=== PATIENT | male | born 1995 | race American Indian/Alaskan Native ===

== ENCOUNTER 2016-06-19 10:42 | Emergency (ER) | payer MEDICARE, OTHER ==
[2016-06-19 10:51] VITALS: BP 119/77
--- NOTE | 2016-06-19 13:07 | Emergency Department Report ---
- General Chief Complaint: Upper Respiratory Infection Stated Complaint: SORE THROAT/COUGHING/SNEEZING/CONGESTION Time Seen by Provider: 06/19/16 12:38 Source: patient Mode of arrival: Ambulatory Limitations: No Limitations - History of Present Illness Initial Comments: 20-year-old male presents today with cough, nasal congestion, minimal sore throat 2 days. Patient states that his niece has been sick. Denies having any medication for symptomatic relief. Denies fever, chills, nausea, vomiting, chest pain, shortness of breath, abdominal pain. MD Complaint: cough, sore throat, rhinorrhea, nasal congestion Onset/Timin -: days(s) Severity: mild Severity scale (0 -10): 0 Improves With: nothing Worsens With: nothing Context: sick contacts (neice was sick) Associated Symptoms: rhinorrhea, nasal congestion, sore throat, cough. denies: fever, chills, myalgias, headache, chest pain, shortness of breath, abdominal pain, nausea, vomiting, diarrhea, rash, hoarseness, ear pain Treatments Prior to Arrival: none - Related Data Previous Rx's Medication Instructions Recorded Last Taken Type Neomy/Polymyx B/Hc Otic Susp 5 drops OT QID #1 bottle 02/13/14 Unknown Rx [Cortisporin (Otic) Susp] Fluticasone [Flonase] 1 spray NS QDAY #1 bottle 06/19/16 Unknown Rx Ibuprofen [Motrin 600 MG tab] 600 mg PO Q8H PRN #30 tablet 06/19/16 Unknown Rx Promethazine /Codeine 5 ml PO Q6H PRN #100 ml 06/19/16 Unknown Rx [Phenergan/Codeine 6.25-10 mg/5 ml] Allergies Allergy/AdvReac Type Severity Reaction Status Date / Time No Known Allergies Allergy Verified 02/13/14 15:31 ED Review of Systems ROS: Stated complaint: SORE THROAT/COUGHING/SNEEZING/CONGESTION Other details as noted in HPI Constitutional: denies: chills, fever, malaise Eyes: denies: eye pain ENT: throat pain, congestion. denies: ear pain Respiratory: cough. denies: shortness of breath, wheezing Cardiovascular: denies: chest pain, palpitations Endocrine: no symptoms reported Gastrointestinal: denies: abdominal pain, nausea, vomiting Neurological: denies: headache, weakness ED Past Medical Hx - Past Medical History Previous Medical History?: No - Surgical History Past Surgical History?: No - Social History Smoking Status: Never Smoker Substance Use Type: None - Medications Home Medications: Home Medications Medication Instructions Recorded Confirmed Last Taken Type Neomy/Polymyx B/Hc Otic Susp 5 drops OT QID #1 bottle 02/13/14 Unknown Rx [Cortisporin (Otic) Susp] Fluticasone [Flonase] 1 spray NS QDAY #1 bottle 06/19/16 Unknown Rx Ibuprofen [Motrin 600 MG tab] 600 mg PO Q8H PRN #30 tablet 06/19/16 Unknown Rx Promethazine /Codeine 5 ml PO Q6H PRN #100 ml 06/19/16 Unknown Rx [Phenergan/Codeine 6.25-10 mg/5 ml] ED Physical Exam - General Limitations: No Limitations General appearance: alert, in no apparent distress - Head Head exam: Present: atraumatic, normocephalic - Eye Eye exam: Present: normal appearance, PERRL - ENT ENT exam: Present: normal orophraynx, mucous membranes moist, TM's normal bilaterally, normal external ear exam - Expanded ENT Exam Expanded Ear exam: Present: normal external inspection Mouth exam: Present: normal external inspection, tongue normal. Absent: drooling, trismus, muffled voice Throat exam: Positive: normal inspection, tonsillar erythema (minimal). Negative: tonsillomegaly, tonsillar exudate, R peritonsillar mass, L peritonsillar mass - Neck Neck exam: Present: normal inspection, full ROM. Absent: tenderness, meningismus, lymphadenopathy - Respiratory Respiratory exam: Present: normal lung sounds bilaterally. Absent: respiratory distress, wheezes - Cardiovascular Cardiovascular Exam: Present: regular rate, normal rhythm. Absent: systolic murmur, diastolic murmur - GI/Abdominal GI/Abdominal exam: Present: soft, normal bowel sounds. Absent: distended, tenderness, guarding, rebound - Rectal Rectal exam: Present: deferred - Extremities Exam Extremities exam: Present: normal inspection, full ROM - Neurological Exam Neurological exam: Present: alert, oriented X3, normal gait - Psychiatric Psychiatric exam: Present: normal affect, normal mood - Skin Skin exam: Present: warm, dry, intact ED Course Vital Signs 06/19/16 10:48 Temperature 98.7 F Pulse Rate 92 H Respiratory 20 Rate Blood Pressure 119/77 O2 Sat by Pulse 100 Oximetry ED Medical Decision Making - Lab Data Vital Signs 06/19/16 10:48 Temperature 98.7 F Pulse Rate 92 H Respiratory 20 Rate Blood Pressure 119/77 O2 Sat by Pulse 100 Oximetry - Medical Decision Making 20-year-old male presents today with cough and cold symptoms 2 days. Patient scores a 0 on the Centor criteria with no fever, positive for cough, no tonsillar exudates, no anterior cervical lymphadenopathy. Patient is in no acute distress at this time. He will be discharged home and is encouraged to follow up with a primary care provider. He will be sent home on Flonase, promethazine/codeine and ibuprofen and is encouraged to return to the emergency room for any worsening symptoms. Critical care attestation.: If time is entered above; I have spent that time in minutes in the direct care of this critically ill patient, excluding procedure time. ED Disposition Clinical Impression: URI (upper respiratory infection) Qualifiers: URI type: unspecified viral URI Qualified Code(s): J06.9 - Acute upper respiratory infection, unspecified; B97.89 - Other viral agents as the cause of diseases classified elsewhere Disposition: DISCHARGED TO HOME OR SELFCARE Is pt being admited?: No Does the pt Need Aspirin: No Condition: Stable Instructions: Upper Respiratory Infection (ED) Additional Instructions: Follow-up with primary care provider. Return to the emergency department if symptoms worsen. Prescriptions: Fluticasone [Flonase] 1 spray NS QDAY #1 bottle Ibuprofen [Motrin 600 MG tab] 600 mg PO Q8H PRN #30 tablet PRN Reason: Pain Promethazine /Codeine [Phenergan/Codeine 6.25-10 mg/5 ml] 5 ml PO Q6H PRN #100 ml PRN Reason: cough Referrals: PRIMARY CARE, [Primary Care Provider] - 3-5 Days [facility] [Outside] - 3-5 Days Forms: Work/School Release Form(ED) Time of Disposition: 13:12
== END 2016-06-19 13:30 | disposition home or self-care (01) ==
LOC: ED 10:42
DX: J06.9 Acute upper respiratory infection, unspecified (principal); B97.89 Other viral agents as the cause of diseases classified elsewhere
CPT/HCPCS: 99282